=== PATIENT | male | born 1975 | race Caucasian/White ===

== ENCOUNTER 2016-09-22 14:07 | Observation (INO) | payer OTHER ==
[~2016-09-22] VITALS: Ht 154.9 cm; Wt 120.6 kg
[~2016-09-22 14:07] MED LIST: CLONIDINE HCL0.1 MG PO; HYDROCHLOROTH12.5 M3 PO; NAPROSYN500 MG PO; ULTRAM50 MG PO
[2016-09-22 14:46] LABS: HEMATOCRIT 47.4 % (38.0-50.0); MCH 28.6 PG (29.0-34.0); MCV 84.3 FL (86-99); MEAN PLAT.VOLUME 9.9 uM^3 (9.0-12.4); PLATELET COUNT 279 K/uL (156-360); RBC DIS.WIDTH-CV 13.8 % (11.8-14.6); RBC DIS.WIDTH-SD 42.5 % (39-53); RED BLOOD COUNT 5.62 M/uL (4.00-5.50); WHITE BLOOD COUNT 6.7 K/uL (4.1-10.2)
[2016-09-22] MEDS ORDERED: AMLODIPINE BESY10 MG PO (14:46)
[2016-09-22] MEDS ORDERED: HYDROCHLOROTHIA25 MG PO (14:46)
[2016-09-22] MEDS ORDERED: CLONIDINE HCL0.2 MG PO (14:47)
[2016-09-22] MEDS ORDERED: ERGOCALCIF50000 UNIT PO (14:47)
[2016-09-22 14:54] LABS: CHLORIDE 99 mEq/L (99-109); POTASSIUM 3.2 mEq/L (3.7-5.4); SODIUM 136 mEq/L (136-147)
[2016-09-22 14:56] LABS: GLUCOSE 92 mg/dL (70-99)
[2016-09-22 14:57] LABS: ADD MIUA? YES; BILIRUBIN NEGATIVE; BLOOD TRACE; COLOR YELLOW ((YELLOW)); GLUCOSE (STRIP) NEGATIVE; KETONES NEGATIVE; LEUKOCYTES NEGATIVE; NITRITE NEGATIVE; PROTEIN (STRIP) 100; SPECIFIC GRAVITY 1.003 (1.000-1.030); UROBILINOGEN 0.2 MG/DL (0.2-1.0)
[2016-09-22 14:58] LABS: ANION GAP 13 MEQ/L (2-14); TOTAL BILIRUBIN 0.6 mg/dL (0.0-1.0)
[2016-09-22 15:00] LABS: ALKALINE PHOSPHATASE 70 IU/L (3-129); GFR ESTIMATE (CALCULATED) > 59 mL/min/
[2016-09-22 15:01] LABS: UREA NITROGEN (BUN) 9 mg/dL (9-23)
[2016-09-22 16:11] LABS: BACTERIA NONE SEEN; CASTS PRESENT /LPF; CRYSTALS NONE SEEN; EPITHELIAL CELLS RARE; HYALINE CASTS RARE /LPF; MUCUS NONE SEEN; RED BLOOD CELLS RARE /HPF (0-5); UCUL ADDED? NO; WHITE BLOOD CELLS NONE SEEN /HPF (0-5)
[2016-09-22 18:17] LABS: TROP-I INTERPRETATION NEGATIVE; TROPONIN-I < 0.01 ng/mL (0.0-0.30)
[2016-09-22 21:30] VITALS: BP 154/88
[2016-09-22 23:55] VITALS: BP 136/75
[2016-09-23 04:21] VITALS: BP 153/78
[2016-09-23 04:22] VITALS: BP 129/79
[2016-09-23 06:18] LABS: HEMATOCRIT 44.9 % (38.0-50.0); MCH 29.7 PG (29.0-34.0); MCHC 34.3 G/DL (30.0-36.0); MCV 86.5 FL (86-99); MEAN PLAT.VOLUME 10.4 uM^3 (9.0-12.4); PLATELET COUNT 273 K/uL (156-360); RBC DIS.WIDTH-CV 13.7 % (11.8-14.6); RBC DIS.WIDTH-SD 43.5 % (39-53); RED BLOOD COUNT 5.19 M/uL (4.00-5.50); WHITE BLOOD COUNT 6.9 K/uL (4.1-10.2)
[2016-09-23 06:40] LABS: ALKALINE PHOSPHATASE 58 IU/L (3-129); ANION GAP 13 MEQ/L (2-14); CHLORIDE 99 MEQ/L (99-109); GFR ESTIMATE (CALCULATED) > 59 mL/min/; GLUCOSE 82 mg/dL (70-99); POTASSIUM 3.4 MEQ/L (3.7-5.4); SAMPLE HEMOLYSIS CHECK 0; SAMPLE ICTERIC CHECK 0; SAMPLE LIPEMIA CHECK 0; SODIUM 136 MEQ/L (136-147); TOTAL BILIRUBIN 0.5 MG/DL (0.0-1.0); UREA NITROGEN (BUN) 12 mg/dL (9-23)
[2016-09-23 07:30] VITALS: BP 145/81
[2016-09-23 14:01] LABS: HDL CHOLESTEROL 21 MG/DL (Desirable>=40); LDL CHOLESTEROL 93 mg/dL (Desirable<100); NON-HDL CHOLESTEROL 114 mg/dL (Desirable<160); TOTAL CHOLESTEROL 135 mg/dL (Desirable<200); TRIGLYCERIDES 103 MG/DL (Normal: <150)
[2016-09-23] MEDS ORDERED: ASPIR-LOW81 MG PO (14:19)
[2016-09-23] MEDS ORDERED: POTASSIUM CHLO10 ME3 PO (14:22)
== END 2016-09-23 14:42 | disposition home or self-care (01) ==
LOC: EME 14:07 → EDOF 18:23 → 5WEST 18:23 → EDOF 18:23 → 5WEST 19:52
PROVIDERS: Internal Medicine
DX: R41.0 Disorientation, unspecified (principal); R47.9 Unspecified speech disturbances; R53.1 Weakness; R10.9 Unspecified abdominal pain; I10 Essential (primary) hypertension; E87.6 Hypokalemia; F31.9 Bipolar disorder, unspecified; E78.5 Hyperlipidemia, unspecified; E53.8 Deficiency of other specified B group vitamins; E55.9 Vitamin D deficiency, unspecified; E66.01 Morbid (severe) obesity due to excess calories; Z68.43 Body mass index [BMI] 50.0-59.9, adult
CPT/HCPCS: 70450; 70551; 71020; 74020; 80053; 80061; 81003; 84484; 85027; 93005; 93880; 99281; 99284; G0378; J1650

== ENCOUNTER 2017-11-25 13:13 | Emergency (ER) | payer OTHER ==
[~2017-11-25] VITALS: Ht 157.5 cm; Wt 134.8 kg
[~2017-11-25 13:13] MED LIST changes: +AMLODIPINE BESY10 MG PO; +ASPIR-LOW81 MG PO; +CLONIDINE HCL0.2 MG PO; +ERGOCALCIF50000 UNIT PO; +HYDROCHLOROTHIA25 MG PO; +POTASSIUM CHLO10 ME3 PO
[2017-11-25 13:46] LABS: HEMATOCRIT 42.6 % (38.0-50.0); MCH 30.8 PG (29.0-34.0); MCHC 35.2 G/DL (30.0-36.0); MCV 87.5 FL (86-99); PLATELET COUNT 296 K/uL (156-360); RBC DIS.WIDTH-CV 13.5 % (11.8-14.6); RBC DIS.WIDTH-SD 43.3 % (39-53); RED BLOOD COUNT 4.87 M/uL (4.00-5.50); WHITE BLOOD COUNT 13.9 K/uL (4.1-10.2)
[2017-11-25 13:56] LABS: ALBUMIN 4.2 g/dL (3.2-4.8); CHLORIDE 101 mEq/L (99-109); POTASSIUM 3.3 mEq/L (3.7-5.4); SODIUM 133 mEq/L (136-147)
[2017-11-25 13:59] LABS: GLUCOSE 90 mg/dL (70-99); TOTAL PROTEIN 7.8 g/dL (6.4-8.3)
[2017-11-25 14:00] LABS: TOTAL BILIRUBIN 0.5 mg/dL (0.0-1.0)
[2017-11-25 14:02] LABS: ALKALINE PHOSPHATASE 78 IU/L (3-129); CREATININE 0.8 mg/dL (0.6-1.3); GFR ESTIMATE (CALCULATED) > 59 mL/min/ (58.99-99999)
[2017-11-25 14:03] LABS: UREA NITROGEN (BUN) 10 mg/dL (9-23)
[2017-11-25 14:04] LABS: AST (GOT) 27 IU/L (2-34)
[2017-11-25 14:05] LABS: ALT (GPT) 35 IU/L (3-49)
[2017-11-25 17:20] LABS: APPEARANCE CLEAR ((CLEAR)); BILIRUBIN NEGATIVE; BLOOD NEGATIVE; COLOR YELLOW ((YELLOW)); GLUCOSE (STRIP) NEGATIVE; KETONES 20; LEUKOCYTES NEGATIVE; NITRITE NEGATIVE; PROTEIN (STRIP) 100; SPECIFIC GRAVITY 1.023 (1.000-1.030)
[2017-11-25 17:31] LABS: BACTERIA NONE SEEN /HPF; EPITHELIAL CELLS RARE /HPF; HYALINE CASTS 0-5 /LPF; MUCUS TRACE /LPF; RED BLOOD CELLS 0-5 /HPF (0-5); UCUL ADDED? NO; WHITE BLOOD CELLS 0-5 /HPF (0-5)
[2017-11-25 17:59] VITALS: BP 143/91
== END 2017-11-25 18:03 | disposition home or self-care (01) ==
LOC: EME 13:13
DX: R10.9 Unspecified abdominal pain (principal); K76.0 Fatty (change of) liver, not elsewhere classified; I10 Essential (primary) hypertension; F32.9 Major depressive disorder, single episode, unspecified; F31.9 Bipolar disorder, unspecified; Z87.891 Personal history of nicotine dependence
CPT/HCPCS: 74176; 80053; 81003; 85027; 99281; 99285